=== PATIENT | male | born 1940 ===

== ENCOUNTER 2018-03-16 06:19 | Day surgery (SDC) | payer OTHER ==
[2018-03-16] MEDS ORDERED: ceFAZolin 1 gm in NS 2 GM/200 ML BAG IVPB ONE (07:28)
[2018-03-16] MEDS ORDERED: Bacitracin 500 Units/gm Oint Foilpak UD ONE (07:29)
[2018-03-16] MEDS ORDERED: Lidocaine 2% MPF (5 ml) Inj ONE ×2 (07:29)
[2018-03-16] MEDS ORDERED: Bupivacaine 0.25% 20 ML INJ IJ ONE (07:29)
[2018-03-16] MEDS ORDERED: Midazolam 2 MG/2 ML VIAL ONE (08:26)
[2018-03-16] MEDS ORDERED: Propofol 10 mg/ml Inj (20 ML) ONE (08:27)
[2018-03-16] MEDS ORDERED: HYDROmorphone 0.5 mg/0.5 ml ISec IVP PRN (10:18)
--- NOTE | 2018-03-16 10:28 | PCM.SURG1 ---
Surgeon's Initial Post Op Note - Surgeon's Notes Surgeon: Dr. Stephanie Ribeiro, DPM Pharmacy Technician: Dr. Willi Kaye PGY2, Dr. Jia Rai PGY3, Dr. Nasreen Jarrell PGY3 Type of Anesthesia: IV Sedation, Local Anesthesia Administered By: Dr. Dyer Pre-Operative Diagnosis: 1. 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 2. Necrosis of dorsal right foot. 3. Necrosis of right heel. 4. Ingrown toenail right hallux medial border Operative Findings: See dictation report. M: 4-0 prolene, Integra Bilayer Graft, VARUN wound vac. I: Preop 20 cc 1:1 2% lidocaine plain, 0.25% marcaine plain Post-Operative Diagnosis: Same Operation Performed: 1. Amputation of right fifth digit. 2. Amputation of right fourth digit. 3. Debridement of dorstal right foot necrotic wound with application of biological dressing. 4. Debridement of right foot necrotic heel wound with application of biological dressing. 5. Partial nail avulsion of right hallux lateral border Specimen/Specimens Removed: 1. Right fifth digit. 2. Right fourth digit. 3. Bone right foot Estimated Blood Loss: EBL {In ML}: 20 Blood Products Given: N/A Drains Used: No Drains Post-Op Condition: Good Date of Surgery/Procedure: 03/16/18 Time of Surgery/Procedure: 10:31
[2018-03-16] MEDS ORDERED: Lactated Ringer's 1,000 ML IV SCH (10:30)
[2018-03-16 14:55] VITALS: BP 124/59; PULSE 62; RESP 11; TEMP 98.4; O2SAT 100
--- NOTE | 2018-03-17 10:05 | OP ---
PROCEDURE DATE: 03/16/2018 SURGEON: Stephanie Ribeiro DPM ASSISTANTS: Willi Kaye DPM, PGY-2 and Jia Rai DPM, PGY-3 and Nasreen Jarrell DPM, PGY-3. ANESTHESIOLOGIST: Rashaun Dyer CRNA ANESTHESIA: IV sedation with local. PREOPERATIVE DIAGNOSES: 1. 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 2. Necrosis of dorsal right mid foot. 3. Necrosis of right heel. 4. Ingrown toe nail, right hallux lateral border. POSTOPERATIVE DIAGNOSES: 1. 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 2. Necrosis of dorsal right mid foot. 3. Necrosis of right heel. 4. Ingrown toe nail, right hallux lateral border. PROCEDURES: 1. Amputation of right fifth digit. 2. Amputation of right fourth digit. 3. Debridement of dorsal right foot necrotic wound with application of biological dressing. 4. Debridement of right foot necrotic heel wound with application of biological dressing. 5. Partial nail avulsion of right hallux lateral border. INDICATIONS: The patient is a 77-year-old male with the above-mentioned diagnosis. The patient has exhausted all conservative treatment options at this time and now requires surgical intervention. The patient signed the consent after careful explanation of risks, benefits, complications, and alternatives for surgical procedure. No guarantees were given nor implied. N.p.o. status was confirmed prior to taking the patient to the OR. PREPARATION: The patient was brought into the operating room and placed on the operating room table in a supine position. Time-out was performed for the identification of the correct patient and procedure. After induction of IV sedation, the patient received a total of 20 mL of 1:1 mixture of 0.25% Marcaine plain and 2% lidocaine plain in the local block fashion to the right foot. The right lower extremity was then prepped and draped in the normal sterile manner, and the procedure began. No tourniquet was used during this procedure. PROCEDURE 1: Amputation of right fifth digit. Attention was then turned to the right fifth digit, which was noted to be completely necrosed in the distal tip proximally to the level of the metatarsal phalangeal joint using #15 blade and a towel clamp. A sharp full thickness dissection was made down to the level of the metatarsal phalangeal joint, where the digit was disarticulated and sent to pathology for pathological examination. The now visible flexor and extensor tendons were then sharply excised using #15 blade as proximal as possible. Attention was then turned to the right fourth digit which was also noted to be completely necrosed at this time. Utilizing a towel clamp and a #15 blade, a full thickness incision was made down to the level of the metatarsal phalangeal joint where the fourth digit was disarticulated at the metatarsal phalangeal joint. Utilizing pickups and sharp 15 blade, all remaining visible extensor and flexor tendons were sharply excised from the field as proximal as possible. The digit was sent to pathology for pathological examination. The skin bridge in between the amputation site of the fourth and fifth digit was then brought into view using #15 blade. A transverse incision was made from the fifth digit to amputation site of the fourth digit, thereby creating a one large open wound at the distal aspect of the foot. This entire new wound was then sutured, closed with all skin edges, reapproximated appropriately using 4-0 Prolene suture. Attention was then turned to the dorsal aspect of the right foot where an approximately 3 cm x 4 cm necrotic patch of skin was noted in the dorsal mid foot. Utilizing a pickup and fresh #15 blade, the necrotic eschar was completely excised from the dorsal aspect of the foot, revealing fibrotic fascial layer underneath. Versajet was then utilized to debride away all nonviable tissue from the open wound site. Attention was then turned to the posterior plantar aspect of the right heel where a second necrotic eschar was noted. Utilizing a pickup and fresh #15 blade, this eschar was also debrided from the field, revealing a fibrotic fascial layer underneath. Versajet was also used to debride this fibrotic tissue and all nonviable tissue in the area, and Integra Bilayer graft was then sutured into place on the dorsal aspect of the right foot at the site as well at the posterior heel wound utilizing 3-0 Monocryl suture. The graft was soaked in saline prior to application to the foot. Before closure of any other wound sites for application of the graft, all sites were flushed with copious amounts of normal sterile saline. Following this, a VARUN wound VAC was applied to the dorsal wound as well as the amputation sites of the fourth and fifth digits. The wound VAC was noted to have an appropriate air tight seal after application. All surgical sites were then dressed with 4 x 4 gauze, multiple ABD pads, Kerlix, and an ROBERT bandage, and the procedure was completed. POSTOPERATIVE CONDITION: The patient tolerated the anesthesia and the procedure well, and is escorted to the recovery room with vital signs stable and neurovascular status intact to the right lower extremity. The patient is certainly nonweightbearing to the right foot with crutches and is to keep dressings clean, dry, and intact at all times. The patient will follow up with Dr. Ribeiro on an outpatient basis following discharge from the hospital. Willi Kaye DPM Stephanie Ribeiro DPM
--- NOTE | 2018-03-18 08:53 | RAD ---
Date of service: 03/16/2018 PROCEDURE: Right Foot Radiographs. HISTORY: s/p fourth and fifth ray resection COMPARISON: None. FINDINGS: BONES: Partial cast obscures fine bone and soft tissue detail. Diffuse osteopenia likely reflects osteoporosis clinically correlate. Disuse osteopenia also likely given probable its of osteopenia in the periarticular distribution, particularly in the forefoot. Partial amputations of the 4th and 5th digits is identified. Old healed fracture of the 5th metatarsal base identified. No definite acute fracture appreciable throughout. Partial capture distal right tibial compression plate and multiple screws noted. JOINTS: No subluxation or dislocation. Diffuse degenerative changes are identified comprised of articular cortical sclerosis and variable joint space narrowing throughout the right foot joints diffusely. SOFT TISSUES: Normal. OTHER FINDINGS: None. IMPRESSION: Partial amputation of the 4th and 5th digits appreciated. 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 Clinically correlate. Prior tibial compression plate and screws partially captured. Cast obscures bone and soft tissue detail. Degenerative changes as discussed above.
== END 2018-03-16 13:03 | disposition home or self-care (01) ==
LOC: C.SDS 06:19
PROVIDERS: ATTEND Podiatrist Foot & Ankle Surgery
DX: E11.52 Type 2 diabetes mellitus with diabetic peripheral angiopathy with gangrene (principal); L60.0 Ingrowing nail; I96 Gangrene, not elsewhere classified; M86.171 Other acute osteomyelitis, right ankle and foot
CPT/HCPCS: 11042; 11730; 15004; 15271; 28820; 73630; 88305; 97116; 97161; 97607; G8978; G8979; G8980; J0690; J2250; J2704; J3010; Q4104